=== PATIENT | male | born 1950 | race Caucasian/White ===

== ENCOUNTER 2017-10-17 19:25 | Inpatient (IN) | payer OTHER ==
[~2017-10-17] VITALS: Ht 175.3 cm; Wt 104.3 kg
[~2017-10-17 19:25] MED LIST: AMMONIUM LACTA385 GM TOP; KEFLEX500 M1 PO; METFORMIN HCL1000 M1 PO; PREDNISONE10 M2 PO; RAMIPRIL10 M1 PO; SIMVASTATIN40 M1 PO
--- NOTE | 2017-10-17 20:29 | RADIOLOGY REPORT ---
EXAMINATION: XR CHEST CLINICAL INFORMATION: Congestive heart failure COMPARISON: Chest x-ray 04/14/2008 TECHNIQUE: 2 views of the chest were obtained. FINDINGS: Lungs are clear. No pulmonary vascular congestion. There is no pleural effusion. The heart size is normal. The cardiac and mediastinal contours are normal. There are multilevel degenerative changes of dorsal spine. IMPRESSION: No acute abnormality of chest.
--- NOTE | 2017-10-17 20:52 | ULTRASOUND REPORT ---
EXAMINATION: US TRIPLEX OF LOWER EXTREMITIES, BILATERAL CLINICAL INFORMATION: Bilateral pain. Redness. Swelling. COMPARISON: None TECHNIQUE: Color-flow triplex imaging with spectral analysis and compression Doppler were performed on the lower extremities. FINDINGS: Respiratory variation, normal compression and augmented flow are noted throughout the lower extremities. The visualized common femoral vein, superficial femoral vein, profunda femoral vein, popliteal vein and midcalf peroneal and posterior tibial venous segments show no evidence of deep venous thrombosis. There is no Phillips's cyst. IMPRESSION: Normal triplex scan without evidence of deep venous thrombosis involving the lower extremities.
--- NOTE | 2017-10-17 21:16 | ED GENERAL ADULT ---
History of Present Illness General Chief Complaint: Lower Extremity Problems Stated Complaint: SIB MD RUSSELL FOR ADMISSION OF CELLULITIS? Source: patient, family, old records Exam Limitations: no limitations Vital Signs & Intake/Output Vital Signs & Intake/Output Vital Signs Date Time Temp Pulse Resp B/P B/P Pulse O2 O2 Flow FiO2 Mean Ox Delivery Rate 10/18 0236 98.3 91 18 146/78 99 Room Air 10/18 0226 Room Air 10/18 0153 96.2 95 20 160/86 96 Room Air 10/18 0145 96 Room Air 10/17 2333 98 20 139/85 97 Room Air 10/17 1952 98.2 108 22 162/100 98 ED Intake and Output 10/18 0000 10/17 1200 Intake Total 1000 Output Total Balance 1000 Intake, IV 1000 Patient 230 lb Weight Allergies Coded Allergies: No Known Allergies (10/16/17) Reconcile Medications Ammonium Lactate 12 % CREAM..G. 1 MANDEEP TOP DAILY LEGS (Reported) Cephalexin (Keflex) 500 MG CAPSULE 1 CAP PO TID rash Metformin HCl 1,000 MG TABLET 1 TAB PO BID DIABETES (Reported) Prednisone 10 MG TABLET 1 TAB PO AD RASH 6 TABS DAYS 1-3 4 TABS DAYS 4-6 2 TABS DAYS 7-9 1 TAB DAYS 10-12 Ramipril 10 MG CAPSULE 1 CAP PO DAILY BP (Reported) Simvastatin (Simvastatin*) 40 MG TABLET 1 TAB PO QPM CHOLESTEROL (Reported) Triage Note: PER PT SENT IN BY PMD FOR ADMISSION BLE CELLULITIS BLE EXTREMITIES RED. Triage Nurses Notes Reviewed? yes Onset: Gradual Duration: week(s): (2), changing over time, continues in ED, getting worse Timing: recent history Injury Environment: home Severity: mild, moderate Severity Numbers: 6 No Modifying Factors: none HPI: 67-year-old male past medical history of diabetes, hypertension presents for evaluation of possible cellulitis. Patient states that over the past several weeks she has had worsening swelling and spreading redness in his bilateral upper and lower extremities. Patient was seen here yesterday and diagnosed with possible stasis dermatitis versus cellulitis versus allergic rash. He was started on prednisone and cephalexin. He saw his primary care doctor today and he felt like the redness was spreading. He was sent in for evaluation for failed outpatient treatment of cellulitis. Patient states that the redness has been spreading up his bilateral lower legs into his upper legs and from his hands into his forearms. He saw a pharmacy manager who recommended topical steroids. Patient denies any fevers or chills no chest pain shortness of breath. (Sahil Gill) Past History Travel History Traveled to [place] past 21 day No Medical History Any Pertinent Medical History? see below for history Neurological: NONE EENT: NONE Cardiovascular: hypertension Respiratory: NONE Gastrointestinal: NONE Hepatic: NONE Renal: NONE Musculoskeletal: NONE Psychiatric: NONE Endocrine: diabetes Surgical History Surgical History: non-contributory Psychosocial History What is your primary language Vietnamese Tobacco Use: Current Daily Use Daily Tobacco Use Amount/Type: => 5 Cigarettes daily Family History Hx Contributory? No (Sahil Gill) Review of Systems Review of Systems Constitutional: Reports: no symptoms. EENTM: Reports: no symptoms. Respiratory: Reports: no symptoms. Cardiovascular: Reports: peripheral edema. GI: Reports: no symptoms. Genitourinary: Reports: no symptoms. Musculoskeletal: Reports: no symptoms. Skin: Reports: see HPI, rash. Neurological/Psychological: Reports: no symptoms. Hematologic/Endocrine: Reports: no symptoms. Immunologic/Allergic: Reports: no symptoms. All Other Systems: Reviewed and Negative (Sahil Gill) Physical Exam Physical Exam General Appearance: well developed/nourished, no apparent distress, alert, awake , obese Head: atraumatic, normal appearance Eyes: Bilateral: normal appearance, PERRL, EOMI. Ears, Nose, Throat: normal pharynx, normal ENT inspection, hearing grossly normal Neck: normal inspection, supple, full range of motion Respiratory: normal breath sounds, chest non-tender, no respiratory distress, lungs clear Cardiovascular: regular rate/rhythm, normal peripheral pulses Peripheral Pulses: 2+ radial (R), 2+ radial (L) Gastrointestinal: normal bowel sounds, soft, non-tender, no organomegaly Back: normal inspection, no vertebral tenderness Extremities: normal inspection, normal range of motion, no edema Neurologic/Psych: no motor/sensory deficits, awake, alert, oriented x 3, normal gait Skin: intact, normal color, warm/dry, rash, THE BILATERAL LOWER EXTREMITIES ARE DIFFUSELY SWOLLEN AND ERYTHEMATOUS WITH MACERATED CRACKED DRY SKIN WITH OVERLYING ERYTHEMA. tHE ERYTHEMA GRADUALLY SPREADS UP TO THE UPPER LEGS BILATERALLY. tHERE IS NO FOCAL FLUCTUANT AREAS OR DISCHARGE. aDDITIONALLY THERE IS SYMMETRIC ERYTHEMA OF THE BILATERAL HANDS GOING UP TO THE FOREARMS. tHE SKIN IS ALSO DRY AND CRACKED. nO FOCAL FLUCTUANT AREAS OR DISCHARGE NEUROVASCULAR SUPPLY IS INTACT IN THE BILATERAL UPPER AND LOWER EXTREMITIES Lymphatic: no anterior cervical ursula Core Measures ACS in differential dx? No CVA/TIA Diagnosis: No Sepsis Present: No Sepsis Focused Exam Completed? No (Sahil Gill) Progress Differential Diagnoses I considered the following diagnoses in my evaluation of the patient: [ Cellulitis, stasis dermatitis, sepsis, DVT, abscess, allergic reaction, medication side effect, fungal infection] Plan of Care: Orders Procedure Date/time Status CBC WITHOUT DIFFERENTIAL 10/19 0600 Active BASIC ELECTROLYTES PLUS BUN&CR 10/19 0600 Active Regular Diet 10/18 B Active LACTIC ACID 10/18 0230 Active US-BILAT LOW EXTR ARTERIAL DOP 10/18 0225 Active Vital Signs 10/18 022 Active Teach/Educate 10/18 022 Active Pain Treatment and Response 10/18 022 Active Nutritional Intake, Monitor 10/18 022 Active Isolation 10/18 022 Active Intake & Output 10/18 022 Active Patient Care Conference 10/18 0220 Active Activity/Ambulation 10/18 022 Active Pathway - chart 10/18 0031 Active Patient Data 10/18 0027 Active ED Holding Orders 10/18 0004 Active Admit to inpatient 10/18 0004 Active Vital Signs 10/18 0004 Active Code Status 10/18 0004 Active Saline Lock 10/18 UNK Active House Staff 10/18 UNK Active Wound Care/Dressing 10/18 UNK Active VTE Mechanical Prophylaxis 10/18 UNK Active Elevate 10/18 UNK Active PHYSICIAN CONSULT 10/18 UNK Active ECHOCARDIOGRAM 10/18 UNK Active EKG 10/17 2353 Active Intake & Output 10/17 2327 Active LACTIC ACID 10/17 2237 Complete EKG 10/17 1953 Active TROPONIN LEVEL 10/17 1937 Complete LACTIC ACID 10/17 1937 Complete COMPREHENSIVE METABOLIC PANEL 10/17 193 Complete CBC WITHOUT DIFFERENTIAL 10/17 193 Complete Current Medications Sig/Lashanda Start time Last Medication Dose Stop Time Status Admin Atorvastatin Calcium 20 MG 1700 10/18 1700 UNVr (Lipitor) Clobetasol Propionate 1 MANDEEP DAILY 10/18 1000 UNVr (Clobetason) Enoxaparin Sodium 40 MG DAILY 10/18 1000 UNVr (Lovenox) Lisinopril 10 MG DAILY 10/18 1000 UNVr (Prinivil) Cefazolin Sodium 2 GM IQ8 10/18 0800 CANr (Kefzol) N/A 1 UNIT (No Carrier) Sodium Chloride 1,000 ML Q13H 10/18 0045 UNVr 10/18 (Normal Saline 0.9%) 0246 Laboratory Tests 10/18/17 0305: Lactic Acid Pending 10/17/17 2331: Lactic Acid 3.0 H 10/17/17 2159: Anion Gap 11, Estimated GFR > 60, BUN/Creatinine Ratio 20.0, Glucose 178 H, Lactic Acid 3.5 H, Calcium 8.9, Total Bilirubin 0.3, AST 13 L, ALT 21, Alkaline Phosphatase 98, Troponin I < 0.01, Total Protein 7.0, Albumin 3.3 L, Globulin 3.7, Albumin/Globulin Ratio 0.9 L 10/17/172111: CBC w Diff NO MAN DIFF REQ, RBC 4.94, MCV 84.1, MCH 27.3, MCHC 32.4 L, RDW 14.5 , MPV 8.0, Gran % 81.1 H, Lymphocytes % 11.5 L, Monocytes % 5.8, Eosinophils % 0, Basophils % 1.6, Absolute Granulocytes 10.0 H, Absolute Lymphocytes 1.4, Absolute Monocytes 0.7 H, Absolute Eosinophils 0, Absolute Basophils 0.2 Microbiology 10/17 1936 BLOOD: Blood Culture - CAN Cancelled: Cancelled via OE: COMPLETED YESTERDAY 10/17 1936 BLOOD: Blood Culture - CAN Cancelled: Cancelled via OE: COMPLETED YESTERDAY Patient seen and evaluated. She has bilateral symmetric lower extremity edema with erythema and dry cracked skin. Suspect stasis dermatitis with possible secondary cellulitis additionally with possible allergic/ATOPIC etiology. Patient saw a pharmacy manager. See consult in the chart. They recommend topical steroids. She does have a elevated white blood cell count and this may be related to steroid use but there is a left shift. Additionally he has an elevated lactic acid of 3.5. Patient was started on Unasyn he was also given a dose of Solu-Medrol. Patient states he is having difficulty ambulating due to the swelling. Ultrasound negative for DVT. Remaining blood work does not show any abnormal findings. First EKG was abnormal and slightly irregular with a right bundle branch block. Troponin negative. He denies any chest pain shortness breath palpitations. Patient will be admitted for IV antibiotics, serial labs, IV steroids, cardiology consult. Case discussed Dr. Steele she agrees. Diagnostic Imaging: Viewed by Me: Ultrasound. Discussed w/RAD: Ultrasound. Radiology Impression: PATIENT: BERKLEY OROZCO PRESENT AGE: 67 PATIENT ACCOUNT NO: [id number] : 48 LOCATION: ER ORDERING PHYSICIAN: Sahil JUAN SERVICE DATE: 10/17/17 EXAM TYPE: US - US-EXT BILAT VENOUS DOPPLER EXAMINATION: US TRIPLEX OF LOWER EXTREMITIES, BILATERAL CLINICAL INFORMATION: Bilateral pain. Redness. Swelling. COMPARISON: None TECHNIQUE: Color-flow triplex imaging with spectral analysis and compression Doppler were performed on the lower extremities. FINDINGS: Respiratory variation, normal compression and augmented flow are noted throughout the lower extremities. The visualized common femoral vein, superficial femoral vein, profunda femoral vein, popliteal vein and midcalf peroneal and posterior tibial venous segments show no evidence of deep venous thrombosis. There is no Phillips's cyst. IMPRESSION: Normal triplex scan without evidence of deep venous thrombosis involving the lower extremities. DICTATED BY: Michael Borden MD DATE/TIME DICTATED:10/17/172047 DIRECTOR OF CONTRACTS:RAD.HAYES DATE/TIME TRANSCRIBED:10/17/172047 CONFIDENTIAL, DO NOT COPY WITHOUT APPROPRIATE AUTHORIZATION. CXR Impression: PATIENT: BERKLEY OROZCO PRESENT AGE: 67 PATIENT ACCOUNT NO: [id number] : 48 LOCATION: ER ORDERING PHYSICIAN: Sahil JUAN SERVICE DATE: 10/17/17 EXAM TYPE: RAD - XRY- CHEST XRAY, TWO VIEWS EXAMINATION: XR CHEST CLINICAL INFORMATION: Congestive heart failure COMPARISON: Chest x-ray 04/14/2008 TECHNIQUE: 2 views of the chest were obtained. FINDINGS: Lungs are clear. No pulmonary vascular congestion. There is no pleural effusion. The heart size is normal. The cardiac and mediastinal contours are normal. There are multilevel degenerative changes of dorsal spine. IMPRESSION: No acute abnormality of chest. DICTATED BY: Michael Borden MD DATE/TIME DICTATED:10/17/172024 DIRECTOR OF CONTRACTS:RAD.HAYES DATE/TIME TRANSCRIBED:10/17/172024 CONFIDENTIAL, DO NOT COPY WITHOUT APPROPRIATE AUTHORIZATION. Initial ED EKG: sinus tachycardia rate 107, multiple premature complexes right bundle branch block (Sahil Gill) Departure Departure Disposition: STILL A PATIENT Condition: Stable Clinical Impression Primary Impression: Cellulitis Qualifiers: Site of cellulitis: extremity Site of cellulitis of extremity: lower extremity Laterality: unspecified laterality Qualified Code: L03.119 - Cellulitis of unspecified part of limb Secondary Impressions: EKG abnormality, Lactic acid acidosis Referrals: Kenyon Russell MD (PCP/Family) Departure Forms: Customer Survey General Discharge Information Admission Note Spoke With: Manjula Espinoza MD Documentation of Exam: Documentation of any treatments & extenuating circumstances including Concerns Regarding Discharge (functional status, medication knowledge or non-compliance, living conditions, etc.) that warrant an admission rather than observation: [IV fluids, serial labs, follow-up cultures, IV antibiotics, IV steroids, cardiology consult, Lasix] (Sahil Gill) PA/INSTRUMENTATION ENGINEER Co-Sign Statement Statement: ED Attending supervision documentation- [X] I saw and evaluated the patient. I have also reviewed all the pertinent lab results and diagnostic results. I agree with the findings and the plan of care as documented in the PA's/INSTRUMENTATION ENGINEER's documentation. [X] I have reviewed the ED Record and agree with the PA's/INSTRUMENTATION ENGINEER's documentation. [] Additions or exceptions (if any) to the PAs/INSTRUMENTATION ENGINEER's note and plan are summarized below: [] (Cedric BURRELL,Mackenzie) Critical Care Note Critical Care Note Critical Care Time: non-applicable (Sahil Gill)
[2017-10-17 21:19] LABS: ABSOLUTE BASOPHIL COUNT 0.2 /CUMM (0.0-0.2); ABSOLUTE EOSINOPHIL COUNT 0 /CUMM (0.0-0.7); ABSOLUTE LYMPH COUNT 1.4 /CUMM (1.2-3.4); ABSOLUTE MONOCYTE COUNT 0.7 /CUMM (0.10-0.60); BASOPHIL % 1.6 % (0.0-2.0); EOSINOPHIL % 0 % (0-5); GRANULOCYTE % 81.1 % (42.2-75.2); HEMATOCRIT 41.5 % (42-52); MEAN CORPUSCULAR HGB 27.3 PG (27.0-31.0); MEAN CORPUSCULAR HGB CONC 32.4 G/DL (33.0-37.0); MEAN CORPUSCULAR VOLUME 84.1 FL (80.0-94.0); PLATELET COUNT 260 /CUMM (130-400); RBC DISTRIBUTION WIDTH 14.5 % (11.5-14.5); RED BLOOD CELL CT 4.94 /CUMM (4.70-6.10); WHITE BLOOD CELL COUNT 12.3 /CUMM (4.8-10.8)
--- NOTE | 2017-10-18 00:27 | History & Physical ---
Dalton BURRELL,[facility] 10/18/17 0027: General Information and HPI MD Statement: I have seen and personally examined BERKLEY OROZCO and documented this H&P. The patient is a 67 year old M who presented with a patient stated chief complaint of [?cellulitis]. Source of Information: patient, family History of Present Illness: Most of the hx is given by the as the patient is japanese. 67-year-old male with a past medical history of pvd, hypertension, hyperlipidemia, diabetes sent in by his PCP Dr. Medley to be admitted for cellulitis. The patient's family member states that his skin issues have been ongoing since September 2016. She states that the frons of his legs continue to be dry, thickened, raised since then. More recently the patient's family has noticed some new changes since the [place]. She states that he has had a few small rashes on his thighs and then went to the PCP and was given prednisone. States that the intermittent rashes did disappear. The patient was seen in the ED yesterday and was sent home with prednisone and cephalexin. The patient was able to see a networks software consultant today in then went to his PCP who encouraged to the emergency department to be admitted. The patient has endorsed fevers, chills. The states that she has noticed sores and possible common from his legs, increasing shortness of breath due to his chronic smoking. The patient himself denies any chest pain or changes in elimination. Of note the patient states that he last saw his vascular surgeon May. The patient is a 55+ pack year smoker and currently smokes around one pack per day. He states that he had one shot of alcohol every Friday. He quit using alcohol 5 years ago. He denies any illicit drugs. Allergies/Medications Allergies: Coded Allergies: No Known Allergies (10/16/17) Home Med list Ammonium Lactate 12 % CREAM..G. 1 MANDEEP TOP DAILY LEGS (Reported) Cephalexin (Keflex) 500 MG CAPSULE 1 CAP PO TID rash Metformin HCl 1,000 MG TABLET 1 TAB PO BID DIABETES (Reported) Prednisone 10 MG TABLET 1 TAB PO AD RASH 6 TABS DAYS 1-3 4 TABS DAYS 4-6 2 TABS DAYS 7-9 1 TAB DAYS 10-12 Ramipril 10 MG CAPSULE 1 CAP PO DAILY BP (Reported) Simvastatin (Simvastatin*) 40 MG TABLET 1 TAB PO QPM CHOLESTEROL (Reported) Past History Travel History Traveled to [place] past 21 day No Medical History Neurological: NONE EENT: NONE Cardiovascular: hypertension Respiratory: NONE Gastrointestinal: NONE Hepatic: NONE Renal: NONE Musculoskeletal: NONE Psychiatric: NONE Endocrine: diabetes Surgical History Surgical History: non-contributory Review of Systems Review of Systems Constitutional: Reports: chills, fever. Cardiovascular: Reports: no symptoms. Respiratory: Reports: short of breath. GI: Reports: no symptoms. Genitourinary: Reports: no symptoms. Musculoskeletal: Reports: see HPI (sores + pus). Exam & Diagnostic Data Last 24 Hrs of Vital Signs/I&O Vital Signs Date Time Temp Pulse Resp B/P B/P Pulse O2 O2 Flow FiO2 Mean Ox Delivery Rate 10/18 0236 98.3 91 18 146/78 99 Room Air 10/18 0226 Room Air 10/18 0153 96.2 95 20 160/86 96 Room Air 10/18 0145 96 Room Air 10/17 2333 98 20 139/85 97 Room Air 10/17 1952 98.2 108 22 162/100 98 Intake & Output 10/18 0800 10/18 0000 10/17 1600 Intake Total 1000 Output Total Balance 1000 Intake, IV 1000 Patient 230 lb 230 lb Weight Weight Reported by Patient Measurement Method Physical Exam General Appearance Alert, Cooperative, No Acute Distress, of note patient speaks japanese Skin venous stasis changes of b/l LE Cardiovascular Regular Rate, Normal S1, Normal S2 Lungs Clear to Auscultation, decreased breath sounds Abdomen Normal Bowel Sounds, Soft, No Tenderness Extremities 2+ lower extremity edema b/l Vascular uunable to personally appreciate pedal or posterior tibial pulse. resident was able to palpate pedal muscles Last 24 Hrs of Labs/Micheal: Laboratory Tests 10/18/17 0305: Lactic Acid Pending 10/17/17 2331: Lactic Acid 3.0 H 10/17/172158: Anion Gap 11, Estimated GFR > 60, BUN/Creatinine Ratio 20.0, Glucose 178 H, Lactic Acid 3.5 H, Calcium 8.9, Total Bilirubin 0.3, AST 13 L, ALT 21, Alkaline Phosphatase 98, Troponin I < 0.01, Total Protein 7.0, Albumin 3.3 L, Globulin 3.7, Albumin/Globulin Ratio 0.9 L 10/17/172111: CBC w Diff NO MAN DIFF REQ, RBC 4.94, MCV 84.1, MCH 27.3, MCHC 32.4 L, RDW 14.5 , MPV 8.0, Gran % 81.1 H, Lymphocytes % 11.5 L, Monocytes % 5.8, Eosinophils % 0, Basophils % 1.6, Absolute Granulocytes 10.0 H, Absolute Lymphocytes 1.4, Absolute Monocytes 0.7 H, Absolute Eosinophils 0, Absolute Basophils 0.2 Microbiology 10/17 1936 BLOOD: Blood Culture - CAN Cancelled: Cancelled via OE: COMPLETED YESTERDAY 10/17 1936 BLOOD: Blood Culture - CAN Cancelled: Cancelled via OE: COMPLETED YESTERDAY Assessment/Plan Assessment: A: 67-year-old male with a past medical history of hypertension, hyperlipidemia, diabetes sent in by his PCP Dr. Medley to be admitted for cellulitis. P: #Venous stasis changes, versus eczema versus cellulitis WBC 12.3 Lacticacid 3.5 -f/u arterial dopplers -trend lactiac acid -Echocardiogram to rule out any causes of CHF -call derm -cont IV topical steorids, consider adding low dose oral prednisone -currently holding off abx. pt recently switched tide detergent. diffuse erythematous eczema rash affect b/l LE and b/l UE. #hx of htn, hld, diabetes -Hold metformin -Continue lisinopril(instead of ramipril), simvastatin #FULL CODE As Ranked By This Provider Problem List: 1. Lactic acid acidosis 2. EKG abnormality Core Measures/Misc (05/18) Acute Coronary Syndrome ACS Diagnosis: No Congestive Heart Failure Congestive Heart Failure Diagnosis No Cerebrovascular Accident CVA/TIA Diagnosis: No VTE (View Protocol) VTE Risk Factors Acute Medical Illness No Mechanical VTE Prophylaxis d/t N/A MechProphylax Ordered No VTE Pharm Prophylaxis d/t NA PharmProphylax ordered Sepsis (View protocol) Sepsis Present: No Oz Cunningham 10/18/17 0215: Resident Review Statement Resident Statement: examined this patient, discussed with internet marketing specialist, agreed with internet marketing specialist, discussed with family, reviewed EMR data (avail), discussed with nursing , discussed with case mgmt, reviewed images Other Findings: 67 YO man currently active heavy smoker with PMHx. of DM, HTN, HLD, chronic venous stasis which was evaluated before by a vascular surgeon and an ultrasound was done and he has been told that his circulation is fine, dermatitis and COPD! ?, presented to the ED with a c/o worsening B/L upper and LE erythema, swelling and pain, according to his daughter states this has been on initial since September 2016 ,he was seen yesterday at our ED and was started on prednisone taper and keflex and sent home with a referral to networks software consultant and a f/u with his PCP, networks software consultant recommended steroid cream, emolliant, he was seen today by his pcp who refer him to our ED for admission for cellulitis. Patient kristal any chest pain, palpitation, shortness of breath, fever, and no change in urinary or bowel habits. The only pertinent thing in his history is that he feels chills. Initially we were thinking to start the patient on cefazolin, however we decided to watch him off antibiotic and start him on potent topical steroid as it is most likely dermatitis, will place wound consult, please use emollients to hydrate the skin, will check bilateral lower extremity arterial Doppler for circulation even though he has good pulse on examination, since he told our attending that he had a history of heart failure and he has been on Lasix before we will order an echocardiogram to assess his wall motion and pulse , consider dermatology evaluation. DVT prophylaxis SC Lovenox Full code Majnula Espinoza 10/18/17 0656: Attending MD Review Statement Attending Statement Attending MD Statement: examined this patient, discuss w/resident/PA/ULTRASONIC SOLDERER, agreed w/resident/PA/ULTRASONIC SOLDERER, discussed with family, reviewed images, amended to note Attending Assessment/Plan: CC: skin rash and redness PMH: HTN, DM, HLD Patient came to ER for rash on has upper extremity and lower extremity. According to patient's his skin problem has been going on since September 2016, on and off. His skin is very dry, thickened and flaking. More so in lower extremities and progressively worsening. More recently approximately 2 weeks back they noticed new changes and lower extremity which appears more red and swollen. He is also developing very small rash more proximal to his chronic stasis changes on lower extremities. He followed up with primary care physician who prescribed prednisone and his rash improved. Patient also follows up with retail and promotions coordinator. He started to notice the rash again so he was suggested to go to ER by his retail and promotions coordinator. They also noticed that some of the leg excoriations were weeping. In ER patient was prescribed prednisone and antibiotics and was suggested to follow-up with the networks software consultant. Patient had dermatology appointment today and underwent skin biopsy for upper extremity rash. Patient has mild fever or chills but otherwise ROS unremarkable, including chest pain, chest tightness, shortness of breath, dyspnea on exertion. Patient used to be on Lasix in the past but discontinued for frequency of urination. Today he took 1 dose of Lasix for swollen legs. also mentions that she started using new detergent today, she was not much concerned about it as she had used in the past. Patient was also evaluated by vascular surgeon who suggested circulation is clear. He has extensive smoking history. Vitals: T max 98.2, pulse 108, RR 20, blood pressure 139/85, saturating well on room air. On exam: A O 3, cooperative, no acute distress, neck supple, JVD normal, no lymphadenopathy, mucosa moist, no focal neurological deficit CVS: S1-S2, RRR. RS : Clear to auscultate bilaterally. Abdomen: Soft, NT, ND, bowel sounds present. Bilateral lower extremity has stasis dermatitis changes with some superficial vesicles, scaling and flaking, creeping on posterior aspect. Proximal to this stasis dermatitis changes, around the knee and thigh area patient appears to have punctate red maculopapular rash more in favor of some sort of contact dermatitis versus fungal infection. Does not appear to be cellulitic. Patient's hands has xerotic dermatitis and desquamation. No rash in genital area, no ulcers, no oral rash, no evidence of uveitis. CXR : No acute abnormality of chest. DVT Doppler bilateral lower extremity: Normal triplex scan without evidence of deep venous thrombosis involving the lower extremities. Assessment and plan 67-year-old male with a history of diabetes, hypertension, HLD presented in ER for worsening of rash. Patient was seen in ER yesterday. He was seen by networks software consultant this morning and came back to ER again this evening as suggested by his primary care physician. There was a concern about worsening redness, lower extremity swelling. On examination Bilateral lower extremity has stasis dermatitis changes with some superficial vesicles, scaling and flaking, creeping on posterior aspect. Proximal to this stasis dermatitis changes, around the knee and thigh area patient appears to have punctate red maculopapular rash more in favor of some sort of contact dermatitis versus fungal infection. Does not appear to be cellulitic. No rash in genital area, no ulcers, no oral rash, no evidence of uveitis. Patient's hands has xerotic dermatitis and desquamation. All the changes appear more chronic than acute but progressively worsening. This does not appear cellulitis. + Suspected xerotic dermatitis bilateral upper extremity + Stasis dermatitis bilateral lower extremity superadded contact dermatitis versus fungal infection, no evidence of cellulitis at this point + bilateral lower extremity edema and stasis changes : Suspected PAD, PVD, lymphedema, no inguinal lymph nodes, chest x-ray normal, no JVD - Admit to general medicine - Continue local application of emollient, steroids cream - Wound care consult - ID consult - Watch off antibiotics for now - Arterial Doppler bilateral lower extremity - 2-D echocardiogram to rule out any congestive heart failure - Obtain dermatologic opinion if required - DVT prophylaxis
[2017-10-18 02:36] VITALS: BP 146/78
[2017-10-18 06:50] VITALS: BP 134/76
--- NOTE | 2017-10-18 06:58 | Admission Certification ---
Admission Certification Certification Statement - As attending physician, I certify that at the time of - admission, based on clinical presentation, severity of - symptoms, need for further diagnostic testing and - therapeutic interventions, and risk of adverse outcomes - without in-hospital treatment, in my clinical assessment, - this patient requires an acute hospital stay for a minimum - of two nights or longer. I have also considered psychsocial - factors such as support system, advanced age, financial - issues, cognitive issues, and failed out-patient treatments, - past re-admission history, safety of patient, and lack of - compliance as applicable. Specific rationale supporting this admission is: Skin rash
[2017-10-18 13:09] VITALS: BP 120/70
--- NOTE | 2017-10-18 14:05 | ULTRASOUND REPORT ---
EXAMINATION: US-BILAT LOW EXTR ARTERIAL DOP CLINICAL INFORMATION: 67-year-old diabetic smoker presenting with dry scaly skin on both lower extremities. COMPARISON: Bilateral leg venous ultrasound of 10/17/2017 TECHNIQUE: Real-time ultrasound and Doppler techniques (integrating B-mode 2-D vascular images, Doppler spectral analysis and color flow Doppler imaging) were utilized to interrogate the lower extremities. FINDINGS: Right lower extremity: Common femoral artery: 144 cm/sec; triphasic waveform Superficial femoral artery proximal: 140 cm/sec; triphasic waveform Superficial femoral artery mid portion: 130 cm/sec; biphasic waveform Superficial femoral artery distal: 148 cm/sec; biphasic waveform Profunda artery: 99 cm/sec; triphasic waveform Popliteal artery: 103 cm/sec; biphasic waveform Posterior tibial artery: 10 cm/sec; monophasic waveform Anterior tibial artery: 125 cm/sec; biphasic waveform Dorsalis pedis artery: 116 cm/sec; biphasic waveform Left lower extremity: Common femoral artery: 145 cm/sec; triphasic waveform Superficial femoral artery proximal: 187 cm/sec; biphasic waveform Superficial femoral artery mid portion: 145 cm/sec; biphasic waveform Superficial femoral artery distal: 132 cm/sec; biphasic waveform Profunda artery: 85 cm/sec; monophasic waveform Popliteal artery: 102 cm/sec; triphasic waveform Posterior tibial artery: 103 cm/sec; biphasic waveform Anterior tibial artery: 37 cm/sec; biphasic waveform Dorsalis pedis artery: 29 cm/sec; biphasic waveform ADDITIONAL FINDINGS: There is suggestion of a distal occlusion of the right posterior tibial artery with collateral formation. IMPRESSION: No evidence of significant femoral-popliteal inflow disease. Evidence of some tibial vessel disease involving the right posterior tibial artery and the left anterior tibial artery. Greater sensitivity and specificity can be obtained with pre-and post exercise PVRs with ARIS calculations. Also consider dedicated CTA for further anatomical detail.
--- NOTE | 2017-10-18 16:19 | PN- Att Addend ---
Attending Addendum Attending Brief Note 67M PMH HTN, HLD, T2DM admitted with worsening LE rash, with exam showing signs of chronic stasis dermatitis with desquamation of bilateral legs to knee, hands, and distal forearms. No evidence of cellulitis and no systemic symptoms. AFVSS NAD NCAT Supple RRR CTAB Soft, NTND No c/c/e Pulses intact A&Ox3 no focal deficits Current Medications Sig/Lashanda Start time Last Medication Dose Route Stop Time Status Admin Ampicillin Sodium/ 0 .STK-MED ONE 10/17 2121 DC Sulbactam Sodium .ROUTE Ampicillin Sodium/ 3,000 MG ONCE ONE 10/17 2000 DC 10/17 Sulbactam Sodium IV 10/17 Sodium Chloride 100 ML Atorvastatin Calcium 20 MG 1700 10/18 1700 AC PO Cefazolin Sodium 2 GM IQ8 10/18 0800 CAN N/A 1 UNIT IV Clobetasol Propionate 1 MANDEEP DAILY 10/18 1000 AC TOP Enoxaparin Sodium 40 MG DAILY 10/18 1000 AC 10/18 SC 0922 Insulin Aspart 0 TIDAC 10/18 1700 AC SC Lisinopril 10 MG DAILY 10/18 1000 AC 10/18 PO 0922 Methylprednisolone 0 .STK-MED ONE 10/17 2208 DC .ROUTE Methylprednisolone 125 MG ONCE ONE 10/17 2200 DC 10/17 IV 10/17 2201 2252 Petrolatum 1 MANDEEP DAILY 10/18 1400 AC 10/18 EXT 1415 Sodium Chloride 1,000 ML Q13H 10/18 0045 AC 10/18 IV 0246 Sodium Chloride 1,000 ML BOLUS ONE 10/17 2245 DC 10/17 IV 10/17 2344 2255 Laboratory Tests 10/18 10/18 10/17 10/17 0707 0305 2331 2159 Chemistry Sodium (137 - 145 mmol/L) 138 Potassium (3.5 - 5.1 mmol/L) 4.8 Chloride (98 - 107 mmol/L) 102 Carbon Dioxide (22 - 30 mmol/L) 26 Anion Gap (5 - 16) 11 BUN (9 - 20 mg/dL) 16 Creatinine (0.7 - 1.2 mg/dL) 0.8 Estimated GFR (>60 ml/min) > 60 BUN/Creatinine Ratio (7 - 25 %) 20.0 Glucose (65 - 99 mg/dL) 178 H Lactic Acid (0.7 - 2.1 mmol/L) 1.3 1.6 3.0 H 3.5 H Calcium (8.4 - 10.2 mg/dL) 8.9 Total Bilirubin (0.2 - 1.3 mg/dL) 0.3 AST (17 - 59 U/L) 13 L ALT (21 - 72 U/L) 21 Alkaline Phosphatase (< 127 U/L) 98 Troponin I (<0.11 ng/ml) < 0.01 Total Protein (6.3 - 8.2 g/dL) 7.0 Albumin (3.5 - 5.0 g/dL) 3.3 L Globulin (1.9 - 4.2 gm/dL) 3.7 Albumin/Globulin Ratio (1.1 - 2.2 %) 0.9 L 10/17 2111 Hematology CBC w Diff NO MAN DIFF REQ WBC (4.8 - 10.8 /CUMM) 12.3 H RBC (4.70 - 6.10 /CUMM) 4.94 Hgb (14.0 - 18.0 G/DL) 13.5 L Hct (42 - 52 %) 41.5 L MCV (80.0 - 94.0 FL) 84.1 MCH (27.0 - 31.0 PG) 27.3 MCHC (33.0 - 37.0 G/DL) 32.4 L RDW (11.5 - 14.5 %) 14.5 Plt Count (130 - 400 /CUMM) 260 MPV (7.4 - 10.4 FL) 8.0 Gran % (42.2 - 75.2 %) 81.1 H Lymphocytes % (20.5 - 51.1 %) 11.5 L Monocytes % (1.7 - 9.3 %) 5.8 Eosinophils % (0 - 5 %) 0 Basophils % (0.0 - 2.0 %) 1.6 Absolute Granulocytes (1.4 - 6.5 /CUMM) 10.0 H Absolute Lymphocytes (1.2 - 3.4 /CUMM) 1.4 Absolute Monocytes (0.10 - 0.60 /CUMM) 0.7 H Absolute Eosinophils (0.0 - 0.7 /CUMM) 0 Absolute Basophils (0.0 - 0.2 /CUMM) 0.2 Vital Signs Date Time Temp Pulse Resp B/P B/P Pulse O2 O2 Flow FiO2 Mean Ox Delivery Rate 10/18 1309 97.6 94 20 120/70 92 Room Air 10/18 0922 72 142/76 10/18 0650 98.1 89 16 134/76 96 Room Air 10/18 0236 98.3 91 18 146/78 99 Room Air 10/18 0226 Room Air 10/18 0153 96.2 95 20 160/86 96 Room Air 10/18 0145 96 Room Air 10/17 2333 98 20 139/85 97 Room Air 10/17 1952 98.2 108 22 162/100 98 Intake & Output 10/18 1600 10/18 0800 10/18 0000 Intake Total 440 1000 Output Total Balance 440 1000 Intake, IV 200 1000 Intake, Oral 240 Patient 104.326 kg 104.326 kg Weight Weight Reported by Patient Measurement Method Plan - Continue on general medicine - Will order emollient with nursing instructions for liberal use over all involved areas - May continue Clobetasol for LE - Consider dermatology consult if no improvement - No antibiotics - Wound care consult - Continue home medications - DVT PPx
[2017-10-18 21:38] VITALS: BP 120/64
[2017-10-19 07:02] VITALS: BP 114/72
--- NOTE | 2017-10-19 08:13 | PN- Housestaff ---
Subjective Follow-up For: dry skin and swelling, venous stasis cellulitis Subjective: patient says that the lower extremity swelling is improved, the areas that were concerning for cellulitis appear more blotchy today, possible contact dermatitis , dry skin is peeling and lower extremity swelling is improving Review of Systems Constitutional: Reports: see HPI. Objective Last 24 Hrs of Vital Signs/I&O Vital Signs Date Time Temp Pulse Resp B/P B/P Pulse O2 O2 Flow FiO2 Mean Ox Delivery Rate 10/19 1215 120/77 10/19 0702 97.4 89 20 114/72 96 Room Air 10/18 2138 98.0 90 20 120/64 93 Room Air Intake & Output 10/19 1600 10/19 0800 10/19 0000 Intake Total 840 840 Output Total Balance 840 840 Intake, IV 600 600 Intake, Oral 240 240 Physical Exam General Appearance: Alert, Oriented X3, Cooperative, No Acute Distress Cardiovascular: Regular Rate, Normal S1, Normal S2, No Murmurs Lungs: Clear to Auscultation, Normal Air Movement Abdomen: Normal Bowel Sounds, Soft, No Tenderness, No Masses Extremities: lower extremity swelling improved, chronic venous stasis changes, some pedal edema with dry peeling skin on both hands and feet, no clear cellulitic area Current Medications: Current Medications Sig/Lashanda Start time Last Medication Dose Route Stop Time Status Admin Atorvastatin Calcium 20 MG 1700 10/18 1700 AC 10/18 PO 1743 Clobetasol Propionate 1 MANDEEP DAILY 10/18 1000 AC 10/19 TOP 0912 Enoxaparin Sodium 40 MG DAILY 10/18 1000 AC 10/19 SC 0912 Insulin Aspart 0 TIDAC 10/18 1700 AC 10/19 SC 1216 Lisinopril 10 MG DAILY 10/18 1000 AC 10/19 PO 1215 Petrolatum 1 MANDEEP DAILY 10/18 1400 AC 10/19 EXT 0912 Sodium Chloride 1,000 ML Q13H 10/18 0045 DC 10/19 IV 0912 Last 24 Hrs of Lab/Micheal Results Last 24 Hrs of Labs/Mics: Laboratory Tests 10/19/17 0735: Anion Gap 6, Estimated GFR > 60, BUN/Creatinine Ratio 20.0, CBC w Diff NO MAN DIFF REQ, RBC 4.78, MCV 84.0, MCH 27.4, MCHC 32.7 L, RDW 14.8 H, MPV 8.2, Gran % 60.4, Lymphocytes % 32.1, Monocytes % 5.5, Eosinophils % 0.9, Basophils % 1.1, Absolute Granulocytes 5.7, Absolute Lymphocytes 3.0, Absolute Monocytes 0.5, Absolute Eosinophils 0.1, Absolute Basophils 0.1 Assessment/Plan Assessment: 67 year old male with PMH of HTN, HLD, DM sent in PCP for possible cellulitis. Cellulitis: given antibiotics in the ED Unasyn and crystalloid confounded by PVD, venous stasis, peripheral edema, hemosiderin deposition, eczema/dry skin WBC 12.3, resolved Lactic acid 3.5, resolved monitoring off antibiotics discontinue ivfs continue local wound care and topical moisturizers/steroids to lower extremities outpatient dermatology follow up some evidence of distal arterial disease on doppler, no dvt continue topical steorids, given solumedrol Echocardiogram order HTN/HLD/DM Hold metformin accuchecks tidac/hs novolog sliding scale insulin Continue acei and statin Diabetic diet DVT ppx-lovenox 40mg subcutaneous daily Full code Problem List: 1. Rash and nonspecific skin eruption 2. Stasis dermatitis 3. Cellulitis 4. Lactic acid acidosis Pain Ratin Pain Location: b/l LE Pain Goal: Pain 4 or less Pain Plan: prn Tomorrow's Labs & Rationales: none
[2017-10-19 08:23] LABS: ABSOLUTE BASOPHIL COUNT 0.1 /CUMM (0.0-0.2); ABSOLUTE EOSINOPHIL COUNT 0.1 /CUMM (0.0-0.7); ABSOLUTE GRANULOCYTE CT 5.7 /CUMM (1.4-6.5); ABSOLUTE MONOCYTE COUNT 0.5 /CUMM (0.10-0.60); BASOPHIL % 1.1 % (0.0-2.0); EOSINOPHIL % 0.9 % (0-5); GRANULOCYTE % 60.4 % (42.2-75.2); HEMATOCRIT 40.1 % (42-52); MEAN CORPUSCULAR HGB 27.4 PG (27.0-31.0); MEAN CORPUSCULAR HGB CONC 32.7 G/DL (33.0-37.0); MEAN PLATELET VOLUME 8.2 FL (7.4-10.4); PLATELET COUNT 251 /CUMM (130-400); RBC DISTRIBUTION WIDTH 14.8 % (11.5-14.5); RED BLOOD CELL CT 4.78 /CUMM (4.70-6.10); WHITE BLOOD CELL COUNT 9.5 /CUMM (4.8-10.8)
[2017-10-19 12:15] VITALS: BP 120/77
[2017-10-19] MEDS ORDERED: TEMOVATE15 GM TOP (13:10)
[2017-10-19] MEDS ORDERED: PETROLATUM30 GM EXT (13:10)
--- NOTE | 2017-10-19 13:17 | Patient Discharge Instructions ---
Discharge Instructions General Discharge Information You were seen/treated for: dry skin, eczema, venous stasis, lower extremity swelling. Special Instructions: Please follow up with your primary care physician. Please return to the heel sander for further care. You have been given a referral to the wound care center to manage your lower extremity wounds. Please use the steroid cream on your lower extremities. Apply Vaseline and skin moisturizers generously to areas of dry skin Acute Coronary Syndrome Inclusion Criteria At DC or during hospital stay patient has or had the following: ACS DIAGNOSIS No Discharge Core Measures Meds if any: Prescribed or Continued at Discharge Meds if any: NOT Prescribed or Continued at Discharge Congestive Heart Failure Inclusion Criteria At DC or during hospital stay patient has or had the following: CHF DIAGNOSIS No Discharge Core Measures Meds if any: Prescribed or Continued at Discharge Meds if any: NOT Prescribed or Continued at Discharge Cerebrovascular accident Inclusion Criteria At DC or during hospital stay patient has or had the following: CVA/TIA Diagnosis No Discharge Core Measures Meds if any: Prescribed or Continued at Discharge Meds if any: NOT Prescribed or Continued at Discharge Venous thromboembolism Inclusion Criteria VTE Diagnosis No VTE Type NONE VTE Confirmed by (Test) NONE Discharge Core Measures - Per Current guidelines, there needs to be overlap - treatment for the first 5 days of Warfarin therapy. - If discharged on Warfarin prior to 5 days of - overlap therapy, the patient will need to be - assessed for post discharge needs including - *Post discharge parental anticoagulation - *Warfarin and/or parental anticoagulation education - *Follow up date to check INR post discharge At least 5 days overlap therapy as Inpatient No Meds if any: Prescribed or Continued at Discharge Note: Overlap Therapy is Warfarin and Anticoagulant Meds if any: NOT Prescribed or Continued at Discharge
== END 2017-10-19 14:15 | DRG 300 ==
LOC: ERH 19:25 → 2NA 10-18 → ERHI 10-18 → ENRESERV 10-18 01:38 → 2NA 10-18 02:32 → ENPENDDIS 10-19 13:46 → ENTRNSPT 10-19 13:58 → EDTRNSPTSTS 10-19 14:03 → EDTRNSPT 10-19 14:03 → 2NA 10-19 14:15 → CMPTRNSPT 10-19 14:18
PROVIDERS: Physician Assistant Medical; Student in an Organized Health Care Education/Training Program
DX: I87.2 Venous insufficiency (chronic) (peripheral) (principal); E87.2 Acidosis; J44.9 Chronic obstructive pulmonary disease, unspecified; E11.9 Type 2 diabetes mellitus without complications; E78.5 Hyperlipidemia, unspecified; F17.200 Nicotine dependence, unspecified, uncomplicated; I73.9 Peripheral vascular disease, unspecified; I10 Essential (primary) hypertension; Z79.52 Long term (current) use of systemic steroids; Z79.84 Long term (current) use of oral hypoglycemic drugs; R94.31 Abnormal electrocardiogram [ECG] [EKG]
CPT/HCPCS: 2NAP; 36415; 36592; 71046; 82436; 87040; 93005; 93010; 93925; 93970; 96365; 96375; J1650; J2930

== ENCOUNTER 2018-05-28 10:43 | Emergency (ER) | payer OTHER ==
[~2018-05-28] VITALS: Ht 175.3 cm; Wt 102.1 kg
[~2018-05-28 10:43] MED LIST changes: +PETROLATUM30 GM EXT; +TEMOVATE15 GM TOP
--- NOTE | 2018-05-28 11:41 | ED GENERAL ADULT ---
History of Present Illness General Chief Complaint: Skin Rash/ Abcess Stated Complaint: RASH ALL OVER BODY "SKIN IS PEELING OFF" Source: patient Exam Limitations: no limitations Vital Signs & Intake/Output Vital Signs & Intake/Output Vital Signs Date Time Temp Pulse Resp B/P B/P Pulse O2 O2 Flow FiO2 Mean Ox Delivery Rate 05/28 1338 97.8 88 20 116/80 96 Room Air 05/28 1240 Room Air 05/28 1204 100 19 Room Air 05/28 1048 97.3 118 20 117/73 Room Air Allergies Coded Allergies: No Known Allergies (10/16/17) Triage Note: PT TO ED WITH FOR C/O REDNESS, SKIN PEELING AND WEEPING TO B/L LE. DENIES PAIN. EDEMA NOTED. Triage Nurses Notes Reviewed? yes Onset: Gradual Duration: day(s): Timing: constant HPI: 68-year-old male with a history of hypertension and diabetes presenting with rash to all 4 extremities times 10 days. Patient reports a painful red rash with excoriated peeling skin. States that he had a similar rash 7 months ago and was seen by dermatology at that time. He was told that he had contact dermatitis versus atopic dermatitis. He initially required topical and oral steroids before finally improving. States that he also had a skin biopsy during that time that was unremarkable. Patient has been using topical clobetasol for the past 10 days without any improvement. Denies fevers, nausea, vomiting, purulent drainage, chest pain, shortness of breath. (Herlinda JUAN,Cari) Reconcile Medications Ammonium Lactate 12 % CREAM..G. 1 MANDEEP TOP DAILY LEGS (Reported) Cephalexin (Keflex) 500 MG CAPSULE 1 CAP PO 4 TIMES/DAY cellulitis Clobetasol Propionate (Temovate) 0.05 % OINT...G. 1 MANDEEP TOP DAILY PRN eczema APPLY TO LOWER EXTREMITIES Hydroxyzine Hydrochloride (Atarax) 50 MG TAB 1 TAB PO Q6 PRN itching Metformin HCl 1,000 MG TABLET 1 TAB PO BID DIABETES (Reported) Nystatin 1 BILLION UNIT POWDER.EA. 1 MANDEEP TOP TID tinea Petrolatum,White (Petrolatum) 100 % JELLY..G. 1 MANDEEP EXT DAILY DRY SKIN APPLY GENEROUSLY TO DRY SKIN Prednisone 10 MG TABLET 1 TAB PO DAILY dermatitis 6 tabs daily for days 1-3 4 tabs daily for days 4-6 2 tabs daily for days 7-9 1 tab daily for day 10 Ramipril 10 MG CAPSULE 1 CAP PO DAILY BP (Reported) Simvastatin (Simvastatin*) 40 MG TABLET 1 TAB PO QPM CHOLESTEROL (Reported) Triamcinolone Acetonide 0.5 % CREAM..G. 1 MANDEEP TOP BID dermatitis apply to affected area(s) (Virginie BURRELL, Jose) Past History Travel History Traveled to [place] past 21 day No Medical History Any Pertinent Medical History? see below for history Neurological: NONE EENT: NONE Cardiovascular: hypertension Respiratory: NONE Gastrointestinal: NONE Hepatic: NONE Renal: NONE Musculoskeletal: NONE Psychiatric: NONE Endocrine: diabetes Surgical History Surgical History: non-contributory Psychosocial History Who do you live with Spouse Services at Home None What is your primary language Jordanian Tobacco Use: Current Daily Use Daily Tobacco Use Amount/Type: => 5 Cigarettes daily ETOH Use: denies use Illicit Drug Use: denies illicit drug use Family History Hx Contributory? No (Cari Allen) Review of Systems Review of Systems Constitutional: Reports: no symptoms. EENTM: Reports: no symptoms. Respiratory: Reports: no symptoms. Cardiovascular: Reports: no symptoms. GI: Reports: no symptoms. Genitourinary: Reports: no symptoms. Musculoskeletal: Reports: no symptoms. Skin: Reports: see HPI. Neurological/Psychological: Reports: no symptoms. Hematologic/Endocrine: Reports: no symptoms. Immunologic/Allergic: Reports: no symptoms. All Other Systems: Reviewed and Negative (Cari Allen) Physical Exam Physical Exam General Appearance: well developed/nourished, no apparent distress, alert, awake Comments: Gen.: Well-nourished, well-developed, no acute distress. Head: Normocephalic, atraumatic. Eyes: Normal inspection bilaterally Ears: Normal inspection bilaterally Nose: Normal inspection Neck: Normal inspection Lungs: clear to auscultation bilaterally, normnal breath sounds Heart: regular rate and rhythm Abdomen: soft and non-tender Extremities: Significant erythema and epidermal peeling to all 4 distal extremities, also with bilateral lower extremity edema, all extremities are neurovascularly intact with 2+ palpable pulses in the upper extremities and pulses that are audible with Doppler in the lower extremity Neurologic: alert and oriented x3, steady gait Skin: warm and dry Psychiatric: Normal mood and affect, no apparent delusions or hallucinations, behavior appropriate Core Measures ACS in differential dx? No CVA/TIA Diagnosis: No Sepsis Present: No Sepsis Focused Exam Completed? No (Cari Allen) Progress Differential Diagnoses I considered the following diagnoses in my evaluation of the patient: [Contact dermatitis versus atopic dermatitis versus allergic reaction] Plan of Care: Orders Procedure Date/time Status C-REACTIVE PROTEIN 05/28 1150 Complete EKG 05/28 1139 Active HIGH SENSITIVITY CRP 05/28 1138 Complete COMPREHENSIVE METABOLIC PANEL 05/28 113 Complete CBC WITHOUT DIFFERENTIAL 05/28 113 Complete B-TYPE NATRIURETIC PEP (BNP) 05/28 113 Complete Laboratory Tests 05/28/18 1150: Anion Gap 7, Estimated GFR > 60, BUN/Creatinine Ratio 22.7, Glucose 163 H, Calcium 9.4, Total Bilirubin 0.7, AST 17, ALT 25, Alkaline Phosphatase 90, C- Reactive Prot, Quant 5.7 H, C-React Prot High Sens > 15.0 H, Rai-V-Oanoioxofwl Pept 124, Total Protein 7.9, Albumin 3.6, Globulin 4.3 H, Albumin/Globulin Ratio 0.8 L, CBC w Diff NO MAN DIFF REQ, RBC 5.13, MCV 84.4, MCH 28.1, MCHC 33.3, RDW 15.4 H, MPV 8.0, Gran % 81.6 H, Lymphocytes % 11.9 L, Monocytes % 4.1, Eosinophils % 1.9, Basophils % 0.5, Absolute Granulocytes 10.5 H, Absolute Lymphocytes 1.5, Absolute Monocytes 0.5, Absolute Eosinophils 0.2, Absolute Basophils 0.1 05/28/18 1139: [id number] Pept Cancelled Labs show mild leukocytosis to 12 with a mild left shift. Likely with contact dermatitis versus atopic dermatitis, and possible superimposed cellulitis as the patient reports he has been scratching excessively. We will treat with Rx triamcinolone, prednisone, and hydroxyzine for his dermatitis. Will cover for questionable superimposed cellulitis with Rx Keflex. They will follow-up with her drag seiner for reevaluation. Given strict return precautions. Initial ED EKG: rhythm (sinus), RBBB (Cari Allen) Departure Departure Disposition: HOME OR SELF CARE Condition: Stable Clinical Impression Primary Impression: Dermatitis Referrals: Linda BURRELL,Kenyon Livingston (PCP/Family) Additional Instructions: Stop using clobetasol and begin using topical triamcinolone. Take Keflex and prednisone as prescribed. Your next dose of Keflex will be when you brick picker your medication. Your next dose of prednisone will be tomorrow. Follow-up with the drag seiner for reevaluation. Return to the emergency department for any new or worsening symptoms. Departure Forms: Customer Survey General Discharge Information (Cari Allen) Departure Prescriptions: Current Visit Scripts Prednisone 1 TAB PO DAILY #37 TAB 6 tabs daily for days 1-3 4 tabs daily for days 4-6 2 tabs daily for days 7-9 1 tab daily for day 10 Cephalexin (Keflex) 1 CAP PO 4 TIMES/DAY #40 CAP Triamcinolone Acetonide 1 MANDEEP TOP BID #30 GM apply to affected area(s) Hydroxyzine Hydrochloride (Atarax) 1 TAB PO Q6 PRN itching #30 TAB Nystatin 1 MANDEEP TOP TID #1 BOT PA/RE EXAMINER Co-Sign Statement Statement: ED Attending supervision documentation- [x] I saw and evaluated the patient. I have also reviewed all the pertinent lab results and diagnostic results. I agree with the findings and the plan of care as documented in the PA's/RE EXAMINER's documentation. [] I have reviewed the ED Record and agree with the PA's/RE EXAMINER's documentation. [] Additions or exceptions (if any) to the PAs/RE EXAMINER's note and plan are summarized below: [] (Virginie BURRELL, Jose) Critical Care Note Critical Care Note Critical Care Time: non-applicable (Cari Allen)
[2018-05-28 12:02] LABS: ABSOLUTE BASOPHIL COUNT 0.1 /CUMM (0.0-0.2); ABSOLUTE EOSINOPHIL COUNT 0.2 /CUMM (0.0-0.7); ABSOLUTE GRANULOCYTE CT 10.5 /CUMM (1.4-6.5); ABSOLUTE LYMPH COUNT 1.5 /CUMM (1.2-3.4); ABSOLUTE MONOCYTE COUNT 0.5 /CUMM (0.10-0.60); BASOPHIL % 0.5 % (0.0-2.0); EOSINOPHIL % 1.9 % (0-5); GRANULOCYTE % 81.6 % (42.2-75.2); HEMATOCRIT 43.3 % (42-52); MEAN CORPUSCULAR HGB 28.1 PG (27.0-31.0); MEAN CORPUSCULAR HGB CONC 33.3 G/DL (33.0-37.0); MEAN CORPUSCULAR VOLUME 84.4 FL (80.0-94.0); PLATELET COUNT 299 /CUMM (130-400); RBC DISTRIBUTION WIDTH 15.4 % (11.5-14.5); RED BLOOD CELL CT 5.13 /CUMM (4.70-6.10); WHITE BLOOD CELL COUNT 12.9 /CUMM (4.8-10.8)
[2018-05-28] MEDS ORDERED: PREDNISONE10 M2 PO (13:26)
[2018-05-28] MEDS ORDERED: KEFLEX500 M1 PO (13:26)
[2018-05-28] MEDS ORDERED: TRIAMCINOLONE A15 G2 TOP (13:26)
[2018-05-28] MEDS ORDERED: HYDROXYZINE HCL50 M1 PO (13:31)
[2018-05-28 13:38] VITALS: BP 116/80
[2018-05-28] MEDS ORDERED: NYSTATIN1 EAC8 TOP (13:56)
== END 2018-05-28 14:13 ==
LOC: ERH 10:43
PROVIDERS: Physician Assistant
DX: L25.9 Unspecified contact dermatitis, unspecified cause (principal); I10 Essential (primary) hypertension; F17.210 Nicotine dependence, cigarettes, uncomplicated; E11.9 Type 2 diabetes mellitus without complications; Z79.84 Long term (current) use of oral hypoglycemic drugs
CPT/HCPCS: 93005; 93010